=== PATIENT | male | born 1990 | race Asian ===

== ENCOUNTER 2017-05-10 12:46 | Emergency (ER) | payer BC, OTHER ==
[~2017-05-10] VITALS: Ht 165.1 cm; Wt 72.7 kg
[2017-05-10 12:48] VITALS: Ht 165.1 cm; Wt 72.7 kg
[2017-05-10 13:08] LABS: BASOPHILS % 0.4 % (0.0-2.0); EOSINOPHILS # 0.1 10^3/ul (0.0-0.5); EOSINOPHILS % 1.3 % (0.0-7.0); HEMATOCRIT 47.2 % (42.0-52.0); HEMOGLOBIN 15.7 g/dl (14.0-18.0); LYMPHOCYTES # 1.6 10^3/ul (0.8-2.9); LYMPHOCYTES % 30.7 % (15.0-51.0); MEAN CORPUSCULAR HEMOGLOBIN 30.5 pg (29.0-33.0); MEAN CORPUSCULAR HGB CONC 33.3 g/dl (32.0-37.0); MEAN CORPUSCULAR VOLUME 91.8 fl (82.0-101.0); MEAN PLATELET VOLUME 11.4 fl (7.4-10.4); MONOCYTE # 0.4 10^3/ul (0.3-0.9); MONOCYTES % 7.3 % (0.0-11.0); NEUTROPHIL # 3.2 10^3/ul (1.6-7.5); NEUTROPHILS % 60.1 % (39.0-77.0); PLATELET COUNT 215 10^3/UL (140-415); RED BLOOD COUNT 5.14 10^6/ul (4.70-6.10); RED CELL DISTRIBUTION WIDTH 12.3 % (11.5-14.5); WHITE BLOOD COUNT 5.3 10^3/ul (4.8-10.8)
[2017-05-10 13:20] LABS: INR 0.91; PROTIME 12.2 Sec (12.2-14.2)
--- NOTE | 2017-05-10 13:23 | RADRPT ---
PROCEDURE: XR Chest. CLINICAL INDICATION: Chest pain TECHNIQUE: AP view of the chest was performed. COMPARISON: None. FINDINGS: The lungs are clear. The lung volumes are normal. The heart size is normal. The osseous structure s are intact. IMPRESSION: Negative examination. RPTAT: QQ .Charlie Suazo MD, Date Time Electronically viewed and signed by .Charlie Suazo MD, on 05/10/2017 13:23 .M/
[2017-05-10 13:26] LABS: ANION GAP 16 (8-16); BLOOD UREA NITROGEN 23 mg/dl (7-20); CALCIUM 9.4 mg/dl (8.4-10.2); CARBON DIOXIDE 28 mmol/L (21-31); CHLORIDE 101 mmol/L (97-110); CREATININE 1.14 mg/dl (0.61-1.24); GLUCOSE 95 mg/dl (70-220); POTASSIUM 3.8 mmol/L (3.5-5.1); SODIUM 141 mmol/L (135-144)
[2017-05-10 13:38] LABS: TROPONIN-I < 0.012 ng/ml (0.00-0.12)
[2017-05-10] MEDS ORDERED: IBUP800T25 PO (18:49)
--- NOTE | 2017-05-10 18:56 | ERA ---
ER Documentation Chief Complaint Date/Time DATE: 05/10/17 TIME: 18:51 Chief Complaint pt has cp and sob x 1 day, biba from clinic HPI This is a 27-year-old male with no significant past medical history presents with 24 hours of symptoms of shortness of breath. The patient describes substernal chest discomfort that is approximately 1-2 out of 10 with mild shortness of breath. He states occasionally this occurs when he is walking. However he exercises and does not feel when exercising. He denies any pleuritic pain, travel, immobilization, surgery. No family history of early cardiac disease. No fevers or chills and no positional symptoms. The patient was seen at a [facility] urgent care and his EKG was abnormal and he was transferred to our facility. The patient is symptom-free upon arrival. ROS All systems reviewed and are negative except as per history of present illness. Medications Home Meds Active Scripts Ibuprofen* (Motrin*) 800 Mg Tab, 800 MG PO Q6H Y for PAIN AND OR ELEVATED TEMP, #30 TAB Prov:MARYLOU KNIGHT MD 05/10/17 Allergies Allergies: Coded Allergies: No Known Allergy (Verified Allergy, Unknown, 08/06/09) PMhx/Soc Medical and Surgical Hx: pt denies Medical Hx, pt denies Surgical Hx Hx Respiratory Disorders: No Hx Cardiac Disorders: No Hx Alcohol Use: Yes Hx Substance Use: No Hx Tobacco Use: No Smoking Status: Never smoker FmHx Family History: No coronary disease, No diabetes Physical Exam Vitals Vital Signs Date Time Temp Pulse Resp B/P Pulse Ox O2 Delivery O2 Flow Rate FiO2 05/10/17 19:10 98.2 71 19 123/81 100 Room Air 2.0 05/10/17 18:34 98.1 62 18 113/82 100 Room Air 2.0 05/10/17 13:52 63 18 125/90 100 Room Air 05/10/17 12:55 58 17 137/94 100 Nasal Cannula 2.0 05/10/17 12:54 Nasal Cannula 2 05/10/17 12:48 97.8 57 17 142/98 100 Physical Exam General: Well developed, well nourished, no acute distress Head: Normocephalic, atraumatic. Eyes: Pupils equally reactive, EOM intact ENT: Moist mucous membranes Neck: Supple, no lymphadenopathy Respiratory: Lungs clear bilaterally, no distress Cardiovascular: RRR, no murmurs, rubs, or gallops Abdominal: Soft, non-tender, non-distended, no peritoneal signs : Deferred MSK: No edema, no unilateral swelling, 5/5 strength, no pulse deficits Neurologic: Alert and oriented, moving all extremities, normal speech, no focal weakness, no cerebellar signs Skin: No rash Psych: Normal mood Result Diagram: 05/10/17 1259 05/10/17 1259 Results 24 hrs Laboratory Tests Test 05/10/17 12:59 05/10/17 15:50 05/10/17 16:50 White Blood Count 5.310^3/ul Red Blood Count 5.1410^6/ul Hemoglobin 15.7g/dl Hematocrit 47.2% Mean Corpuscular Volume 91.8fl Mean Corpuscular Hemoglobin 30.5pg Mean Corpuscular Hemoglobin Concent 33.3g/dl Red Cell Distribution Width 12.3% Platelet Count 80240^3/UL Mean Platelet Volume 11.4fl Neutrophils % 60.1% Lymphocytes % 30.7% Monocytes % 7.3% Eosinophils % 1.3% Basophils % 0.4% Nucleated Red Blood Cells % 0.0/100WBC Neutrophils # 3.210^3/ul Lymphocytes # 1.610^3/ul Monocytes # 0.410^3/ul Eosinophils # 0.110^3/ul Basophils # 0.010^3/ul Nucleated Red Blood Cells # 0.010^3/ul Prothrombin Time 12.2Sec Prothrombin Time Ratio 1.0 INR International Normalized Ratio 0.91 Activated Partial Thromboplast Time 32.0Sec Sodium Level 141mmol/L Potassium Level 3.8mmol/L Chloride Level 101mmol/L Carbon Dioxide Level 28mmol/L Anion Gap 16 Blood Urea Nitrogen 23mg/dl Creatinine 1.14mg/dl Glucose Level 95mg/dl Calcium Level 9.4mg/dl Troponin I < 0.012ng/ml < 0.012ng/ml Creatine Kinase 510IU/L Creatinine Kinase MB (Mass) 2.73ng/ml [facility] EKG, MONITORS, & DIAGNOSTIC IMAGING: Outside hospital clinic EKG EKG: I reviewed and interpreted a 12-lead EKG. Rhythm: Normal sinus rhythm Ectopy: None Intervals: No abnormalities ST segments: No elevations or depressions, J-point elevation consistent with early repolarization, no reciprocal changes T waves: No contiguous inversions EKG: I reviewed and interpreted a 12-lead EKG. Rhythm: Normal sinus rhythm Ectopy: None Intervals: No abnormalities ST segments: No elevations or depressions, early repolarization without reciprocal changes T waves: No contiguous inversions Repeat EKG: EKG: I reviewed and interpreted a 12-lead EKG. Rhythm: Normal sinus rhythm Ectopy: None Intervals: No abnormalities ST segments: No elevations or depressions, early repolarization without reciprocal changes T waves: No contiguous inversions Chest x-ray: I reviewed and interpreted a 1 view of the chest Mediastinum: No enlargement Cardiac silhouette: No cardiomegaly Airspace: Clear lung colunga bilaterally without evidence of pneumothorax Bones: No evidence of fracture LAB INTERPRETATION: Negative troponin 2 MEDICAL DECISION MAKING: The patient's history, physical exam and clinical presentation is concerning for possible cardiogenic etiology and acute coronary syndrome. Based on the patient's clinical exam and history and risk factors, I have a much lower clinical concern for pulmonary embolism, acute aortic dissection, pneumothorax, pneumonia, cardiac tamponade HEART Score: 1 MACE Rate: Less than 1.7% Shared Decision Making: We had a conversation regarding risk stratification, MACE rate, and the risks, benefits, alternatives of disposition planning options. Disposition planning: Given that I believe the patient's EKG only shows early repolarization and does not show any evidence of cardiac ischemia I do not believe the patient requires inpatient hospitalization. ER COURSE: Upon arrival the patient's EKG was not convincing her ST elevation myocardial infarction. The car changer on-call, Dr. Jackson was emergently notified and reviewed the EKGs. He agrees that this is consistent with repolarization and not consistent with ST elevation myocardial infarction. He states that given the patient's history and age that serial troponins would be appropriate and discharge would be appropriate. He agrees with my plan of care. No signs or symptoms concerning for dissection. Consider possible pericarditis but the patient does not have a friction rub and has no risk factors to Insight pericarditis. No indication for emergent echocardiogram. The patient meets the PERC RULE out criteria. Thus, less than 2% risk of pulmonary embolism with better alternative diagnosis. No indication for d- dimer or CT pulmonary angiogram at this time. The patient had serial troponins that were negative. He remains chest pain- free. I believe the patient can be safely discharged home. I spoke to [facility] who will notify the patient's primary care physician, Dr. Salvador for close primary care follow-up. The patient was advised to avoid exertion until evaluated and cleared by his primary care physician. I kept the patient and/or family informed of laboratory and diagnostic imaging results throughout the emergency room course. DISPOSITION PLAN: We discussed follow up with the patient's primary care doctor within 24 to 48 hours as needed. We also discussed return to the emergency room for worsening symptoms or worsening condition. Outpatient referral: [facility] Discharge Medications: Motrin Departure Diagnosis: Primary Impression: Chest pain Qualified Code: R07.9 - Chest pain, unspecified type Condition: Stable Patient Instructions: Chest Pain, Uncertain Cause Referrals: [facility] YOU HAVE RECEIVED A MEDICAL SCREENING EXAM AND THE RESULTS INDICATE THAT YOU DO NOT HAVE A CONDITION THAT REQUIRES URGENT TREATMENT IN THE EMERGENCY DEPARTMENT. FURTHER EVALUATION AND TREATMENT OF YOUR CONDITION CAN WAIT UNTIL YOU ARE SEEN IN YOUR DOCTORS OFFICE WITHIN THE NEXT 1-2 DAYS. IT IS YOUR RESPONSIBILITY TO MAKE AN APPOINTMENT FOR FOLOW-UP CARE. IF YOU HAVE A PRIMARY DOCTOR --you should call your primary doctor and schedule an appointment IF YOU DO NOT HAVE A PRIMARY DOCTOR YOU CAN CALL OUR PHYSICIAN REFERRAL HOTLINE AT IF YOU CAN NOT AFFORD TO SEE A PHYSICIAN YOU CAN CHOSE FROM THE FOLLOWING [facility] [address] [facility]. [facility] [address] [facility]. [facility] [address] [facility] [facility] [address] [facility] [facility] [address] [facility]. [facility]. [address] [facility] YOU HAVE RECEIVED A MEDICAL SCREENING EXAM AND THE RESULTS INDICATE THAT YOU DO NOT HAVE A CONDITION THAT REQUIRES URGENT TREATMENT IN THE EMERGENCY DEPARTMENT. FURTHER EVALUATION AND TREATMENT OF YOUR CONDITION CAN WAIT UNTIL YOU ARE SEEN IN YOUR DOCTORS OFFICE WITHIN THE NEXT 1-2 DAYS. IT IS YOUR RESPONSIBILITY TO MAKE AN APPOINTMENT FOR FOLOW-UP CARE. IF YOU HAVE A PRIMARY DOCTOR --you should call your primary doctor and schedule and appointment IF YOU DO NOT HAVE A PRIMARY DOCTOR YOU CAN CALL OUR PHYSICIAN REFERRAL HOTLINE AT . IF YOU CAN NOT AFFORD TO SEE A PHYSICIAN YOU CAN CHOSE FROM THE FOLLOWING [facility] INSTITUTIONS: [facility] [address] [place] [address] [facility] [address] [place] [address] [facility] [address] [place] [address] Additional Instructions: Call [facility] and make an appointment with your PMD, CLEO Davis. Avoid exertion until then. Return to [facility] for any worsening pain. MARYLOU KNIGHT MD May 10, 2017 18:56
[2017-05-10 19:10] VITALS: BP 123/81; PULSE 71; RESP 19; TEMP 98.2
[2017-05-10 19:19] LABS: CK-MB 2.73 ng/ml (0.0-2.4)
== END 2017-05-10 19:12 | disposition home or self-care (01) ==
LOC: E/R 12:46
DX: R07.2 Precordial pain (principal); R06.02 Shortness of breath
CPT/HCPCS: 36415; 71010; 80048; 82550; 82553; 84484; 85025; 85610; 85730; 93005